=== PATIENT | female | born 1950 | race Caucasian/White ===

== ENCOUNTER → 2021-09-15 | Outpatient (CLI) | payer MEDICARE, OTHER ==
--- NOTE | 2021-09-15 19:15 | US ---
EXAMINATION TYPE: US thyroid st tissue head/neck DATE OF EXAM: 09/15/2021 COMPARISON: NONE CLINICAL HISTORY: 70-year-old female E04.1 7MM THYROID NODULE. MRI at outside facility showed thyroid nodule. Technique: Multiple sonographic images of the thyroid gland are obtained. FINDINGS: GLAND SIZE: Right Lobe: 4.3 x 1.8 x 1.7 cm Overall Parenchyma: heterogenous Left Lobe: 4.7 x 1.4 x 1.7 cm Overall Parenchyma: heterogeneous Isthmus Thickness: 0.5 cm r NODULES RIGHT: # of nodules measured on right: 3 1. 0.8 X 0.6 x 0.5 cm, mid lateral, solid or almost completely solid, hypoechoic nodule, which is w ider than tall, with smooth margins, without echogenic foci. Prior size: no prior 2. 0.5 X 0.5 x 0.3 cm, mid lateral, solid or almost completely solid, hypoechoic nodule, which is w ider than tall, with smooth margins, without echogenic foci. Prior size: no prior 3. 0.5 X 0.6 x 0.3 cm, upper medial, benign cyst Prior size: no prior LEFT: # of nodules measured on left: 1 1. 0.9 X 0.9 x 0.8 cm, mid , solid or almost completely solid, hypoechoic nodule, which is wider th an tall, with smooth margins, without echogenic foci. Prior size: no prior ISTHMUS: # of nodules measured in the isthmus: 1 1. 0.6 X 0.4 x 0.3 cm solid or almost completely solid, hypoechoic TR 4 nodule, which is wider than tall, with smooth margins, without echogenic foci. Prior size: no prior Bilateral neck scanned, no evidence of lymphadenopathy. IMPRESSION: 2 subcentimeter solid nodules on the right (measuring up to 8 mm), one on the left (measuring up to 9 mm), and one in the isthmus (measuring up to 6 mm). These can continue to be followed.
== END | disposition home or self-care (01) ==
LOC: RADUSWWP 15:49
PROVIDERS: ATTEND Family Medicine
DX: E04.2 Nontoxic multinodular goiter (principal)
CPT/HCPCS: 76536

== ENCOUNTER → 2022-09-21 | Outpatient (CLI) | payer MEDICARE, OTHER ==
--- NOTE | 2022-09-21 12:59 | US ---
EXAMINATION TYPE: US thyroid st tissue head/neck DATE OF EXAM: 09/21/2022 COMPARISON: Thyroid ultrasound 03/23/2022, 09/15/2021 CLINICAL INDICATION: Female, 71 years old with history of E04.1 SINGLE THYROID NODULE; follow up on k nown nodules GLAND SIZE: Right Lobe: 4.5 x 4.9 x 1.6 cm Overall Parenchyma: homogenous Left Lobe: 4.8 x 1.3 x 1.5 cm Overall Parenchyma: homogeneous Isthmus Thickness: 0.4 cm NODULES RIGHT: # of nodules measured on right: 3 1. 0.9 X 0.7 x 0.4 cm complex cystic nodule at mid lateral lobe with smooth margins. Prior size: 0.7 x 0.4 x 0.6 cm 2. 0.5 X 0.3 x 0.5 cm complex cystic nodule at the mid lobe with smooth margins. Prior size: 0.5 x 0.2 x 0.6 cm 3. 0.6 X 0.3 x 0.5 cm, simple cystic nodule at the upper anterior lobe. Prior size: 0.5 x 0.4 x 0.5 cm LEFT: # of nodules measured on left: 1 1. 0.9 X 0.7 x 0.9 cm, solid nodule at the posterior mid lobe with smooth margins. Prior size: 0.9 x 0.6 x 0.9 cm ISTHMUS: # of nodules measured in the isthmus: 0 Bilateral neck scanned, no evidence of lymphadenopathy. IMPRESSION: No significant change from prior. No significant new or enlarging greater than 1.0 cm nodules are see n.
== END | disposition home or self-care (01) ==
LOC: RADUSWWP 08:45
PROVIDERS: ATTEND Family Medicine
DX: E04.1 Nontoxic single thyroid nodule (principal)
CPT/HCPCS: 76536

== ENCOUNTER → 2022-10-25 | Outpatient (CLI) | payer MEDICARE, OTHER ==
[2022-10-25 21:26] LABS: Basophils # (A) 0.02 X 10*3/uL (0.00-0.10); Basophils % (A) 0.2 %; Eosinophils # (A) 0 X 10*3/uL (0.04-0.35); Eosinophils % (A) 0 %; HCT 39.8 % (37.2-46.3); HGB 13.4 d/dL (12.0-15.0); Lymphocytes # (A) 1.75 X 10*3/uL (0.90-5.00); Lymphocytes % (A) 18.2 %; MCH 29.5 pg (27.0-32.0); MCHC 33.7 d/dL (32.0-37.0); MCV 87.7 FL (80.0-97.0); Mean Platelet Volume 11.1 FL (9.5-12.2); Monocytes # (A) 0.35 X 10*3/uL (0.20-1.00); Monocytes % (A) 3.6 %; NRBC Per 100 WBC 0 X 10*3/uL (0.00-0.01); Neutrophils # (A) 7.43 X 10*3/uL (1.80-7.70); Neutrophils % (A) 77.5 %; Platelet Count 366 X 10*3/uL (140-440); RBC 4.54 X 10*6/uL (4.10-5.20); RDW 12.7 % (11.5-14.5)
[2022-10-25 21:39] LABS: C Reactive Protein 7.1 mg/dL (0.00-0.80); Uric Acid 5.1 mg/dL (2.9-7.7)
[2022-10-25 22:11] LABS: Erythrocyte Sedimentation Rate 79 mm/Hr (0-30)
== END | disposition home or self-care (01) ==
LOC: LABWHC1 13:54
PROVIDERS: ATTEND Family Medicine
DX: M25.461 Effusion, right knee (principal)
CPT/HCPCS: 36415; 84550; 85025; 85652; 86140

== ENCOUNTER 2023-06-24 06:08 | Observation (INO) | payer MEDICARE, OTHER ==
[2023-06-24] MEDS ORDERED: ACETAMINOPHEN TAB 325 MG TAB PO PRN (06:49)
[2023-06-24] MEDS ORDERED: MORPHINE SULFATE 4 MG/ML SYRINGE IV PRN (06:49)
[2023-06-24] MEDS ORDERED: HYDROcodone/APAP 5-325MG 1 EACH TAB PO PRN (06:49)
[2023-06-24] MEDS ORDERED: NALOXONE 0.4 MG/ML 1 ML VIAL IV PRN (06:49)
--- NOTE | 2023-06-24 06:49 | ED ---
Extremity Problem HPI - General Chief complaint: Extremity Problem,Nontraumatic Stated complaint: Right knee swelling, pain in right knee Time Seen by Provider: 06/24/23 06:23 Source: patient, RN notes reviewed Mode of arrival: wheelchair Limitations: no limitations - History of Present Illness Initial comments: This is a 72-year-old female who presents to the emergency department for right knee pain and swelling. States that it started last week and has since been getting worse. She saw Dr. Luther in the office 2 days ago. She had a joint aspiration, but states that it was difficult and they were unable to drain as much fluid as they would like. She received a call last evening saying that the culture of the fluid may suggest pseudogout and if her pain became severe she could go to the emergency department for further management. - Related Data Previous Rx's Medication Instructions Recorded Aspirin 81 mg PO DAILY #14 tab 06/24/23 Docusate [Colace] 100 mg PO BID #30 capsule 06/24/23 HYDROcodone/APAP 5-325MG [[place] 1 - 2 tab PO Q6HR PRN #32 tab 06/24/23 5-325] methylPREDNISolone Dose Pack 4 mg PO DIRECTED #1 packet 06/24/23 [Medrol Dose Pack] Allergies Allergy/AdvReac Type Severity Reaction Status Date / Time sulfamethoxazole Allergy Nausea & Verified 06/24/23 08:27 [From Bactrim] Vomiting/Fever trimethoprim [From Bactrim] Allergy Nausea & Verified 06/24/23 08:27 Vomiting/Fever NSAIDS (Non-Steroidal AdvReac Unknown Verified 06/24/23 08:27 Anti-Inflamma Review of Systems ROS Statement: Those systems with pertinent positive or pertinent negative responses have been documented in the HPI. ROS Other: All systems not noted in ROS Statement are negative. Past Medical History Past Medical History: No Reported History, Cancer Additional Past Medical History / Comment(s): kidney cancer History of Any Multi-Drug Resistant Organisms: None Reported Past Surgical History: Back Surgery, Section Additional Past Surgical History / Comment(s): nephrectomy Past Psychological History: No Psychological Hx Reported Smoking Status: Former smoker Past Alcohol Use History: Rare Past Drug Use History: None Reported General Exam Limitations: no limitations General appearance: alert, in no apparent distress Head exam: Present: atraumatic, normocephalic, normal inspection Respiratory exam: Present: normal lung sounds bilaterally. Absent: respiratory distress, wheezes, rales, rhonchi, stridor Cardiovascular Exam: Present: regular rate, normal rhythm, normal heart sounds. Absent: systolic murmur, diastolic murmur, rubs, gallop, clicks Extremities exam: Present: other (Tenderness and swelling over the right patella. No erythema. Limited active range of motion secondary to pain. Full passive range of motion. 2+ DP and PT pulses.) Neurological exam: Present: alert, oriented X3, CN II-XII intact Psychiatric exam: Present: normal affect, normal mood Skin exam: Present: warm, dry, intact, normal color. Absent: rash Course Vital Signs 06/24/23 06/24/23 06/24/23 06:16 07:00 08:41 Temperature 98.6 F 98.8 F Pulse Rate 110 H 111 H 105 H Respiratory 18 19 18 Rate Blood Pressure 139/88 140/90 141/86 O2 Sat by Pulse 97 97 96 Oximetry Medical Decision Making - Medical Decision Making This is a 72 year old female who presents to the emergency department for right knee pain and swelling. Was pt. sent in by a medical professional or institution? @ -Orthopedics Did you speak to anyone other than the patient for history? @ -No Did you review nursing and triage notes? @ -Yes, and I agree, it is accurate with regards to the patient's symptoms. Were old charts reviewed? @ -No Differential Diagnosis? @ -Differential Musculoskeletal: Muscular strain, contusion, ligament sprain, fracture, arthritis, septic arthritis, bursitis, cellulitis, muscle spasm, nerve compression, DVT, arterial occlusion, herpes zoster, electrolyte abnormality, tumor.... This is not meant to be in all inclusive list EKG interpreted by me (3pts min.)? @ -Not obtained X-rays interpreted by me (1pt min.)? @ -X-ray of the right knee obtained. My interpretation identifies a large joint effusion. CT interpreted by me (1pt min.)? @ -Not obtained U/S interpreted by me (1pt. min.)? @ -Not obtained What testing was considered but not performed? (CT, X-rays, U/S, labs)? Why? @ -None What meds were considered but not given? Why? @ -None Did you discuss the management of the patient with other professionals? @ -Yes, Dr. Luther, orthopedics, who advised that the patient likely has pseudogout. He advised that she can be admitted to him with plan to take her to the OR later today. Did you reconcile home meds? @ -No Was smoking cessation discussed for >3mins.? @ -No Was critical care preformed (if so, how long)? @ -No Were there social determinants of health that impacted care today? How? (Homelessness, low income, unemployed, alcoholism, drug addiction, transportation, low edu. Level, literacy, decrease access to med. care, [facility], rehab)? @ -No Was there de-escalation of care discussed even if they declined? (Discuss DNR or withdrawal of care, Hospice)? @ -No What co-morbidities impacted this encounter? (DM, HTN, Smoking, COPD, CAD, Cancer, CVA, Hep., AIDS, mental health diagnosis, sleep apnea, morbid obesity)? @ -None Was patient admitted / discharged? @ -Admitted. Case discussed with Dr. Luther, orthopedics, on arrival. He advised that the synovial fluid culture from 06/21 is suggestive of pseudogout, which the patient has had before. Does not believe that the swelling is from infection at this time and advised that antibiotics are not needed. Given the severity of her discomfort, he advised that she can be admitted to himself with plan to take her to the OR later today. Lab work was ordered demonstrating elevated inflammatory markers and was otherwise unremarkable. X-ray of the right knee demonstrates a large joint effusion without other acute process. Will keep patient NPO for possible surgical intervention later today. Consult placed for medicine for medical management. Undiagnosed new problem with uncertain prognosis? @ -None Drug Therapy requiring intensive monitoring for toxicity (Heparin, Nitro, Insulin, Cardizem)? @ -None Were any procedures done? @ -None Diagnosis/symptom? @ -Pseudogout, right knee pain Acute, or Chronic, or Acute on Chronic? @ -Acute Uncomplicated (without systemic symptoms) or Complicated (systemic symptoms)? @ -Uncomplicated Side effects of treatment? @ -None Exacerbation, Progression, or Severe Exacerbation] @ -Not applicable Poses a threat to life or bodily function? @ -Yes, this is impacting her ability to ambulate. This case was discussed in detail with the attending ED physician, Dr. Fischer. Presentation, findings, and treatment plan discussed in detail as well. - Lab Data Result diagrams: 06/24/23 07:00 06/24/23 07:00 - Radiology Data Radiology results: report reviewed, image reviewed Disposition Clinical Impression: Pseudogout of right knee Disposition: ADMITTED IP TO THIS HOSP Time of Disposition: 06:49
[2023-06-24] MEDS: SODIUM CHLORIDE 0.9% 1,000 ML IV STA (06:58)
[2023-06-24] MEDS: MORPHINE SULFATE 2 MG/ML SYRINGE IVP STA (07:01)
[2023-06-24] MEDS: MORPHINE SULFATE 4 MG/ML SYRINGE IVP STA (07:06)
[2023-06-24 07:19] LABS: Basophils # (A) 0.1 k/uL (0-0.2); Basophils % (A) 1 %; Eosinophils # (A) 0.1 k/uL (0-0.7); Eosinophils % (A) 1 %; HCT 41.5 % (34.0-46.0); HGB 14.3 gm/dL (11.4-16.0); Lymphocytes # (A) 1.5 k/uL (1.0-4.8); Lymphocytes % (A) 19 %; MCH 31.8 pg (25.0-35.0); MCHC 34.5 g/dL (31.0-37.0); MCV 92.1 fL (80.0-100.0); Mean Platelet Volume 8.5; Monocytes # (A) 0.5 k/uL (0-1.0); Monocytes % (A) 7 %; Neutrophils # (A) 5.4 k/uL (1.3-7.7); Neutrophils % (A) 71 %; Platelet Count 296 k/uL (150-450); RBC 4.51 m/uL (3.80-5.40); RDW 12.3 % (11.5-15.5); WBC 7.6 k/uL (3.8-10.6)
[2023-06-24 07:25] LABS: ALT 27 U/L (4-34); AST 31 U/L (14-36); African American GFR (CKD) 88 (>60 ml/min/1.73 sqM); Albumin 3.4 g/dL (3.5-5.0); Alkaline Phosphatase 126 U/L (38-126); Anion Gap 8 mmol/L; Blood Urea Nitrogen 16 mg/dL (7-17); Calcium 8.9 mg/dL (8.4-10.2); Carbon Dioxide 23 mmol/L (22-30); Chloride 103 mmol/L (98-107); Glucose 126 mg/dL (74-99); Non-African American GFR(CKD) 76 (>60 ml/min/1.73 sqM); Potassium 4.5 mmol/L (3.5-5.1); Sodium 134 mmol/L (137-145); Total Bilirubin 0.9 mg/dL (0.2-1.3); Total Protein 6.3 g/dL (6.3-8.2)
--- NOTE | 2023-06-24 07:46 | XR ---
EXAMINATION TYPE: XR knee complete RT DATE OF EXAM: 06/24/2023 COMPARISON: NONE HISTORY: 72-year-old female with pain and swelling TECHNIQUE: 4 views FINDINGS: There is a large joint effusion. This causes forward bowing of the quadriceps tendon. Mild anterior soft tissue swelling. There is degenerative change in the lateral compartment with subchondr al cyst in the lateral tibial plateau. No acute fracture, subluxation, dislocation seen. IMPRESSION: 1. Large joint effusion. Consider MRI to assess for internal derangement if indicated. 2. At least moderate lateral compartmental OA. 3. No acute osseous abnormality seen.
[2023-06-24 08:51] LABS: Uric Acid 5.3 mg/dL (3.7-7.4)
[2023-06-24 09:13] LABS: C Reactive Protein 16.9 mg/dL (<1.0)
--- NOTE | 2023-06-24 10:57 | P.HPOR ---
History of Present Illness H&P Date: 06/24/23 The patient is a very pleasant 72-year-old female with a medical history have having had a prior nephrectomy was been seen in my office with recurrent right knee effusions. The patient was recently seen this past at which point she had a large knee effusion. Her knee was aspirated and 30 mL's of cloudy yellow fluid was withdrawn from the knee. This was sent to the lab and came back with an elevated white blood count of 49,500 with predominantly PMNs and calcium pyrophosphate crystals. I called spoke with the patient on the phone yesterday. She had increasing pain and swelling in her knee and difficulty ambulating. She also stated that she was feeling ill. Due to the elevated white blood count and concern for continued destruction of her joint I recommended presenting to the ER to have an arthroscopic I&D over the weekend. The patient presented to the ER early this morning. I met with the patient in preoperative holding and she was continuing to complain of knee pain. Past Medical History Past Medical History: No Reported History, Cancer Additional Past Medical History / Comment(s): kidney cancer History of Any Multi-Drug Resistant Organisms: None Reported Past Surgical History: Back Surgery, Section Additional Past Surgical History / Comment(s): nephrectomy Past Psychological History: No Psychological Hx Reported Smoking Status: Former smoker Past Alcohol Use History: Rare Past Drug Use History: None Reported Medications and Allergies Home Medications Medication Instructions Recorded Confirmed Type No Known Home Medications 06/24/23 06/24/23 History Allergies Allergy/AdvReac Type Severity Reaction Status Date / Time sulfamethoxazole Allergy Nausea & Verified 06/24/23 08:27 [From Bactrim] Vomiting/Fever trimethoprim [From Bactrim] Allergy Nausea & Verified 06/24/23 08:27 Vomiting/Fever NSAIDS (Non-Steroidal AdvReac Unknown Verified 06/24/23 08:27 Anti-Inflamma Physical Examination The patient is resting comfortably in the bed. She is alert and able to answer questions. Her head is normocephalic and atraumatic. She denies to his nonlabored breathing with symmetric chest expansion. Her bilateral upper extremities and left lower extremity are without deformity. On inspection of the right knee she has a large tense knee effusion. Her right knee is warm to the touch but there is no erythema or warmth. There is a Band-Aid over the superolateral pole of the patella from her prior arthrocentesis. She has mild discomfort with passive range of motion of the knee. Results The patient's synovial white blood count from her right knee aspiration is 49,500. Her CRP is elevated at 16.5. Crystal analysis from her knee aspirate shows calcium pyrophosphate crystals consistent with pseudogout. Cultures have no growth to date. - Labs Labs: Abnormal Lab Results - Last 24 Hours (Table) 06/24/23 Range/Units 07:00 Sodium 134 L (137-145) mmol/L Glucose 126 H (74-99) mg/dL C-Reactive Protein 16.9 H (<1.0) mg/dL Albumin 3.4 L (3.5-5.0) g/dL H & H 06/24/23 Range/Units 07:00 Hgb 14.3 (11.4-16.0) gm/dL Hct 41.5 (34.0-46.0) % Result Diagrams: 06/24/23 07:00 06/24/23 07:00 Assessment and Plan Assessment: Right knee effusion etiology pseudogout with elevated synovial white blood count History of prior nephrectomy, inability to take NSAIDs Plan: The patient has a right knee effusion and laboratory studies show calcium pyrophosphate crystals consistent with pseudogout. Due to the elevated white blood count and the patient's severe pain I recommended arthroscopic irrigation and debridement to decompress the inflammatory effusion in her knee and prevent articular cartilage destruction. I have a low index of suspicion of a septic arthritis given the fact that she has had recurrent effusions in her knees, does not appear septic, and her aspirate shows calcium pyrophosphate crystals. Following surgery she would like to discharge home which I think is reasonable. We will obviously follow her cultures and if they become positive she will need antibiotics. The patient is to remain nothing by mouth until surgery later this morning. Time with Patient: Greater than 30
[2023-06-24] MEDS ORDERED: ceFAZolin 1 GM/50 ML BAG (PMX) ONE (11:00)
[2023-06-24] MEDS ORDERED: PROPOFOL 10 MG/ML 20 ML VIAL IV ONE (11:00)
[2023-06-24] MEDS ORDERED: fentaNYL (PF) 50 MCG/ML 2 ML AMP ONE (11:00)
[2023-06-24] MEDS ORDERED: LIDOCAINE 1% INJ 10MG/ML (20 ML MDV) ONE (11:00)
[2023-06-24] MEDS: SODIUM CHLORIDE 0.9% 50 ML with ceFAZolin 2,000 MG IV ONE (11:04)
[2023-06-24] MEDS: IV FLUID CONTINUATION 1,000 ML IV ONE (11:04)
[2023-06-24 11:55] VITALS: TEMP 98.7
--- NOTE | 2023-06-24 12:20 | P.OP ---
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 She presented to my office on with a large right knee effusion. He was aspirated and 30 mL's of cloudy elevate fluid was obtained. This was sent for lab evaluation and showed an elevated synovial white blood count of 49,500 and calcium pyrophosphate crystals. The patient contacted my office yesterday with increased pain in her knee. I recommended that she come to the emergency department to have an arthroscopic I&D to prevent inflammatory damage to her knee. I note the patient and discussed treatment options. We both agreed to proceed with an arthroscopic irrigation and debridement of her knee. She is well aware of the potential risks and Applications of surgery. Operative Findings: There was a large effusion with cloudy yellow fluid. This was sent for cultures. Description of Procedure: The patient is an then prepped holding and the correct right leg was marked with my initials. I reviewed the consent form with the patient and all of her questions were answered. The patient was then brought back to the operating room. She was position on the OR table where general anesthetic and preoperative antibiotics were given. A tourniquet and leg sam was placed around the proximal aspect of the right leg. The right leg was then prepped and draped in the standard sterile fashion. Prior to starting surgery timeout was performed identifying the correct patient, operative extremity, and procedure. The patient's leg was then elevated, exsanguinated with an Esmarch bandage, and the tourniquet was inflated to 250 mmHg. Next I began by outlining the anatomy on the anterior aspect of the knee. A standard anterolateral portal was created and the arthroscope was inserted the super patellar pouch. Fluid was sent for cultures. There was a large kerns of cloudy yellow fluid immediately upon entering the knee. A diagnostic arthroscopy was performed and showed minimal arthritic changes and no obvious meniscal or ligament injuries. Both the arthroscope and the arthroscopic shaver were placed in the supine patellar pouch and 3 L of sterile saline was then irrigated through the knee joint. An arthroscopic debridement was performed using the arthroscopic shaver of all inflamed synovial tissue. The fluid was then removed from the knee. All arthroscopic instruments were removed. The portal sites were closed. A sterile dressing was applied. The patient was brought to recovery room having tolerated the procedure well. Plan: The patient can discharge home as an outpatient as her knee effusion is likely secondary to crystalline arthropathy. She can weight-bear as tolerated. She will be given oral narcotic pain medications, a stool softener, aspirin for DVT prophylaxis, and a Medrol Dosepak. She will follow-up in the office next week. We will follow her cultures and if they become positive she will need antibiotics and treatment for an infection.
[2023-06-24] MEDS: HYDROmorphone 0.5 MG/0.5 ML SYRINGE IVP ONE ×3 (12:27→12:45)
[2023-06-24 12:36] VITALS: RESP 18
[2023-06-24 13:15] VITALS: BP 141/68; PULSE 95
[2023-06-24 13:24] LABS: Erythrocyte Sedimentation Rate 78 mm/Hr (0-30)
--- NOTE | 2023-06-24 14:11 | P.CONS ---
History of Present Illness - Reason for Consult Consult date: 06/24/23 - History of Present Illness Goldie Berger, a 72-year-old female who was admitted to by Dr. Luther and underwent knee surgery Consultation was requested for management while hospitalized Patient denies any medical issues He denies taking any medications at home Orders for discharge patient already in the chart At this time I will ask to cancel consult, patient can follow-up with his Dr. Cao as outpatient. Past Medical History Past Medical History: No Reported History, Cancer Additional Past Medical History / Comment(s): kidney cancer History of Any Multi-Drug Resistant Organisms: None Reported Past Surgical History: Back Surgery, Section Additional Past Surgical History / Comment(s): nephrectomy Past Psychological History: No Psychological Hx Reported Smoking Status: Former smoker Past Alcohol Use History: Rare Past Drug Use History: None Reported Medications and Allergies Home Medications Medication Instructions Recorded Confirmed Type Aspirin 81 mg PO DAILY #14 tab 06/24/23 Rx Docusate [Colace] 100 mg PO BID #30 capsule 06/24/23 Rx HYDROcodone/APAP 5-325MG [[place] 1 - 2 tab PO Q6HR PRN #32 tab 06/24/23 Rx 5-325] methylPREDNISolone Dose Pack 4 mg PO DIRECTED #1 packet 06/24/23 Rx [Medrol Dose Pack] Allergies Allergy/AdvReac Type Severity Reaction Status Date / Time sulfamethoxazole Allergy Nausea & Verified 06/24/23 08:27 [From Bactrim] Vomiting/Fever trimethoprim [From Bactrim] Allergy Nausea & Verified 06/24/23 08:27 Vomiting/Fever NSAIDS (Non-Steroidal AdvReac Unknown Verified 06/24/23 08:27 Anti-Inflamma Physical Exam Vitals: Vital Signs Temp Pulse Resp BP Pulse Ox 06/24/23 08:41 98.8 F 105 H 18 141/86 96 06/24/23 07:00 111 H 19 140/90 97 06/24/23 06:16 98.6 F 110 H 18 139/88 97 Intake and Output 06/23/23 06/24/23 06/24/23 22:59 06:59 14:59 Other: Weight 79.379 kg Results CBC & Chem 7: 06/24/23 07:00 06/24/23 07:00 Labs: Abnormal Lab Results - Last 24 Hours (Table) 06/24/23 Range/Units 07:00 Sodium 134 L (137-145) mmol/L Glucose 126 H (74-99) mg/dL C-Reactive Protein 16.9 H (<1.0) mg/dL Albumin 3.4 L (3.5-5.0) g/dL
[2023-06-24] MEDS: ONDANSETRON 4 MG/2 ML VIAL IVP PRN (15:43)
== END 2023-06-24 16:12 | disposition home or self-care (01) ==
LOC: EC 06:08 → 6NMEDSUR 06:49
PROVIDERS: ADMIT Orthopaedic Surgery; ATTEND Orthopaedic Surgery
DX: M11.861 Other specified crystal arthropathies, right knee (principal); Z87.891 Personal history of nicotine dependence; Z90.49 Acquired absence of other specified parts of digestive tract; Z79.82 Long term (current) use of aspirin; Z85.528 Personal history of other malignant neoplasm of kidney; Z90.5 Acquired absence of kidney
CPT/HCPCS: 99285; 80053; 85652; 83605; 84550; 85025; 86140; 87070; 87205; 87075; 73562; 29877; G0378; J2405; J0690 ×2; J2001; J3010; J2270; J2704; J1170

== ENCOUNTER → 2024-03-06 | Outpatient (CLI) | payer MEDICARE, OTHER ==
--- NOTE | 2024-03-06 07:43 | US ---
EXAMINATION TYPE: US thyroid st tissue head/neck DATE OF EXAM: 03/06/2024 COMPARISON: US(09/21/2022) CLINICAL INDICATION: Female, 73 years old with history of E04.1 Thyroid nodule; F/U TECHNIQUE: Grayscale and color Doppler imaging of the thyroid gland. FINDINGS: GLAND SIZE: Right Lobe: 4.8x1.6x1.9 cm Overall Parenchyma: heterogeneous Left Lobe: 5.2x1.4x2.0 cm Overall Parenchyma: heterogeneous Isthmus Thickness: 0.3 cm NODULES RIGHT: # of nodules measured on right: 2 1. 0.8 X 0.4 x 0.8 cm, mid mid, Prior size: 0.9 x 0.4 x 0.7 cm TIRADS Score: 0 TIRADS Category 1: Composition: Spongiform (0 points). Recommendation: No FNA 2. 0.6 X 0.3 x 0.6 cm, mid mid, Prior size: 0.6 x 0.3 x 0.5 cm TIRADS Score: 0 TIRADS Category 1: Composition: Cystic or almost completely cystic (0 points). Recommendation: No FNA LEFT: # of nodules measured on left: 1 1. 1.1 X 0.8 x 1.0 cm, mid mid, Prior size: 0.9 x 0.7 x 1.0 cm TIRADS Score: 4 TIRADS Category 4: Composition: Solid or almost completely solid (2 points). Echogenicity: Hypoechoic (2 points). Shape: Wider than tall (0 points). Margin: Smooth (0 points). Echogenic foci: None or large comet-tail artifacts (0 points) Recommendation: If >1.5cm: FNA; If >1cm: Follow up at 1,2, 3,5 years ISTHMUS: # of nodules measured in the isthmus: 0 Bilateral neck scanned, no evidence of lymphadenopathy. IMPRESSION: Thyroid nodule on the left that meets criteria for follow-up. [facility], , 03/06/2024 7:41 AM
== END | disposition home or self-care (01) ==
LOC: RADUSWWP 06:48
PROVIDERS: ATTEND Family Medicine
DX: E04.1 Nontoxic single thyroid nodule (principal)
CPT/HCPCS: 76536